=== PATIENT | male | born 1950 | race Caucasian/White ===

== ENCOUNTER → 2017-12-26 | Outpatient (CLI) | payer MEDICARE ==
[~2017-12-26] MED LIST: HYOS.125; PANT20
[2017-12-30 13:55] LABS: Stool Occult Bld Immuno 1 Negative (NEGATIVE); Stool Occult Bld Immuno 2 Negative (NEGATIVE)
== END | disposition home or self-care (01) ==
LOC: LAB 07:00 → LAB SHORT 07:00 → LAB FUT 12-22 10:15
PROVIDERS: Internal Medicine Gastroenterology
DX: Z12.11 Encounter for screening for malignant neoplasm of colon (principal); Z13.818 Encounter for screening for other digestive system disorders; K58.9 Irritable bowel syndrome, unspecified
CPT/HCPCS: 82274

== ENCOUNTER 2017-12-30 13:52 | Day surgery (SDC) | payer OTHER ==
[~2017-12-30] VITALS: Ht 182.9 cm; Wt 61.6 kg
[2017-12-30] MEDS ORDERED: HYOS.125 (14:20)
[2017-12-30] MEDS ORDERED: PANT20 (14:21)
== END 2017-12-30 15:50 | disposition home or self-care (01) ==
LOC: ORSCSDS 13:52
PROVIDERS: Internal Medicine Gastroenterology
PROC: 0DB58ZX Excision of Esophagus, Via Natural or Artificial Opening Endoscopic, Diagnostic (ICD-10-PCS; principal; 2017-12-30 15:00)
PROC: 0DB88ZX Excision of Small Intestine, Via Natural or Artificial Opening Endoscopic, Diagnostic (ICD-10-PCS; principal; 2017-12-30 15:00)
DX: R07.9 Chest pain, unspecified (principal); K22.2 Esophageal obstruction; K21.9 Gastro-esophageal reflux disease without esophagitis; K31.7 Polyp of stomach and duodenum; Z79.899 Other long term (current) drug therapy
CPT/HCPCS: 88305; 88342; J7120

== ENCOUNTER 2021-11-25 07:49 | Day surgery (SDC) | payer OTHER ==
[~2021-11-25] VITALS: Ht 182.9 cm; Wt 66.3 kg
== END 2021-11-25 09:56 | disposition home or self-care (01) ==
LOC: ORSCSDS 07:49
PROVIDERS: Internal Medicine Gastroenterology
PROC: 0D757ZZ Dilation of Esophagus, Via Natural or Artificial Opening (ICD-10-PCS; principal; 2021-11-25 09:15)
PROC: 0DB68ZX Excision of Stomach, Via Natural or Artificial Opening Endoscopic, Diagnostic (ICD-10-PCS; principal; 2021-11-25 09:15)
DX: R13.14 Dysphagia, pharyngoesophageal phase (principal); K21.9 Gastro-esophageal reflux disease without esophagitis; K22.2 Esophageal obstruction; K31.7 Polyp of stomach and duodenum; Z79.899 Other long term (current) drug therapy
CPT/HCPCS: 88305; J2704; J7120

== ENCOUNTER → 2023-01-20 | Outpatient (CLI) | payer OTHER | LOC: LAB SHORT 09:43 → LAB 09:43 | DX: L01.01 Non-bullous impetigo (principal) | CPT/HCPCS: 87070; 87077; 87147; 87186; 87205 ==